=== PATIENT | male | born 1995 | race Caucasian/White ===

== ENCOUNTER → 2017-08-14 | Outpatient (CLI) | payer OTHER ==
[2017-08-14 13:17] LABS: BASO % 0.7 %; BASO ABS # 0.05 K/uL (0-0.2); EOS % 2.5 %; EOS ABS # 0.18 K/uL (0-0.5); HEMATOCRIT 45.7 % (42-52); HEMOGLOBIN 16.2 g/dL (14.0-18.0); IG# 0.03 K/uL (0.00-0.02); LYMPH % 38.9 %; LYMPH ABS # 2.79 K/uL (1.2-3.4); MEAN CELL VOLUME 78.5 fL (80-100); MEAN CORPUSCULAR HEMOGLOBIN 27.8 pg (25-34); MEAN CORPUSCULAR HGB CONC 35.4 g/dl (32-36); MEAN PLATELET VOLUME 8.8 fL (7.4-10.4); MONO % 8.2 %; MONO ABS # 0.59 K/uL (0.11-0.59); NEUT % 49.3 %; NEUT ABS # 3.53 K/uL (1.4-6.5); PLATELET COUNT 310 K/uL (130-400); RED CELL DISTRIBUTION WIDTH CV 13.1 % (11.5-14.5); RED CELL DISTRIBUTION WIDTH SD 36.8 fL (36.4-46.3); WHITE BLOOD COUNT 7.17 K/uL (4.8-10.8)
[2017-08-14 17:24] LABS: ALBUMIN 4.2 gm/dl (3.4-5.0)
== END | disposition home or self-care (01) ==
LOC: C.LAB1850 11:46
PROVIDERS: ATTEND Obstetrics & Gynecology
DX: L70.0 Acne vulgaris (principal); Z79.899 Other long term (current) drug therapy